=== PATIENT | female | born 1995 | race Caucasian/White ===

== ENCOUNTER 2018-08-29 09:40 | Inpatient (IN) | payer OTHER ==
[2018-08-29] MEDS ORDERED: OXYTOCIN/NORMAL SALINE 20 UNIT/1,000 ML RTUINJ IV PRN (10:38)
[2018-08-29] MEDS ORDERED: OXYTOCIN/NORMAL SALINE 20 UNIT/1,000 ML RTUINJ ONE (11:42)
[2018-08-29 11:48] LABS: APPEARANCE,URINE SLIGHTLY-CLOUDY; BILIRUBIN,URINE NEGATIVE (NEGATIVE); COLOR,URINE YELLOW; GLUCOSE, URINE NEGATIVE (NEGATIVE); KETONES,URINE NEGATIVE (NEGATIVE); LEUKOCYTE ESTERASE,URINE NEGATIVE (NEGATIVE); NITRITE,URINE NEGATIVE (NEGATIVE); PROTEIN,URINE NEGATIVE (NEGATIVE); URINE SPECIFIC GRAVITY 1.013; UROBILINOGEN,URINE NEGATIVE mg/dL (<2.0)
[2018-08-29 12:01] LABS: ABSOLUTE LYMPHOCYTES (AUTO) 1.3 10^3/uL (0.5-4.7); ABSOLUTE MONOCYTES (AUTO) 0.9 10^3/uL (0.1-1.4); ABSOLUTE NEUT (AUTO) 5.8 10^3/uL (1.7-8.2); BASOPHILS % (AUTO) 0.3 % (0-2); EOSINOPHILS % (AUTO) 0.5 % (0-6); HEMATOCRIT 28.9 % (36.0-47.0); HEMOGLOBIN 10.2 g/dL (12.0-15.5); MEAN CORPUSCULAR HEMOGLOBIN 30.5 pg (27.0-33.4); MEAN CORPUSCULAR HGB CONC 35.3 g/dL (32.0-36.0); MEAN CORPUSCULAR VOLUME 86 fl (80-97); MONOCYTES % (AUTO) 10.8 % (3-13); PLATELET COUNT 220 10^3/uL (150-450); RED BLOOD COUNT 3.36 10^6/uL (3.72-5.28); RED CELL DISTRIBUTION WIDTH 12.6 % (11.5-14.0); SEGMENTED NEUTROPHILS % (AUTO) 72.4 % (42-78); TOTAL CELLS COUNTED % (AUTO) 100 %
[2018-08-29 12:07] LABS: URINE AMPHETAMINES SCREEN NEGATIVE; URINE BARBITURATES SCREEN NEGATIVE; URINE BENZODIAZEPINES SCREEN NEGATIVE; URINE COCAINE SCREEN NEGATIVE; URINE MARIJUANA (THC) SCREEN NEGATIVE; URINE METHADONE SCREEN NEGATIVE; URINE PHENCYCLIDINE SCREEN NEGATIVE
--- NOTE | 2018-08-29 14:08 | Admission Physical ---
Datetime Report Generated by CPN: 08/29/2018 14:07 CURRENT ADMISSION Hx Assessment: The History has been Reviewed and is Current Chief Complaint: Suspected Ruptured Membranes Indication for Induction: PROM Admit Impression : Term, Intrauterine ; Ruptured Membranes Admit Plan: Admit to Unit; Initiate Labor Augmentation Protocol ALLERGIES Medication Allergies: Yes Medication Allergies: Sulfa (Sulfonamide Antibiotics) (08/29/2018) Latex: No Latex Allergies OBSTETRICAL HISTORY EDC: 09/10/2018 00:00 : 1 Para: 0 Term: 0 : 0 SAB: 0 IAB: 0 Ectopic: 0 Livin Cesareans: 0 VBACs: 0 Multiple Births: 0 Gestational Diabetes: No Rh Sensitization: No Incompetent Cervix: No TRELL: No Infertility: No ART Treatment: No Uterine Anomaly: No IUGR: No Hx Previous C/S: No Macrosomia: No Hx Loss/Stillborn: No PIH: No Hx : No Placenta Previa/Abruption: No Depression/PP Depression: Yes PTL/PROM: No Post Hemorrhage: No Current Procedures: Ultrasound Obstetrical History Comments: G-1 current denies complications SEE RECORDS Alcohol: No Marijuana : No Cocaine: No Other Illicit Drugs: No Cigarettes: Former Smoker. [id number] Cigarette Frequency: > 10 per day Cigarette Comments: stopped inOctober 2017 MEDICAL HISTORY Diabetes: No Blood Transfusion: No Pulmonary Disease (Asthma, TB): No Breast Disease: No Hypertension: No Admin Assistant Surgery: No Heart Disease: No Hosp/Surgery: No Autoimmune Disorder: No Anesthetic Complications: No Kidney Disease: No Abnormal Pap Smear: No Neuro/Epilepsy: No Psychiatric Disorders: Yes Other Medical Diseases: No Hepatitis/Liver Disease: No Significant Family History: No Varicosities/Phlebitis: No Trauma/Violence : No Thyroid Dysfunction: No Medical History Comments: depression/anxiety on zoloft INFECTIOUS HISTORY Gonorrhea: No Genital Herpes: No Chlamydia: No Tuberculosis: No Syphilis: No Hepatitis: No HIV/AIDS Exposure: No Rash or Viral Illness: No HPV: No PHYSICAL EXAM General: Normal Neurologic: Normal Heart: Normal Lungs: Normal Abdomen: Normal Extremities: Normal Pelvic Type: Adequate Vital Signs: Reviewed; Within Normal Limits MEMBRANES Membranes: Ruptured Amniotic Fluid Color: Clear FETUS A EGA: 38.2 Monitoring: External US FHR Category: Category I Presentation: Vertex Admit Comment: 23yo G1 @ 38w2d into L_D with SROM-clear fluid @ 0845. Pt is Opos, Rubella non-immune, GBS neg. significant hx of late entry to care @ 20w and +AFP for open spina bifida but negative u/s and released by MFM after detailed sono. Admit to L_D and augment with pit per Dr. Pike who is the OB supervisor publications production today. PLANS FOR LABOR AND DELIVERY Labor and Delivery: None Pain Management: Natural Feeding Preference: Breast Circumcision: Yes INFORMED CONSENT Assignment: Don Pike MD Signature: with User ID: [email or web address] : with User ID: [email or web address]
[2018-08-30] MEDS ORDERED: FENTANYL/BUPIVACAINE/NS/PF 300 MCG/150 ML RTUINJ EPI ONE ×2 (00:13→15:39)
[2018-08-30] MEDS ORDERED: BUPIVACAINE HCL 0.25 % INJ/PF (2.5 MG/1 ML) 30 ML VIAL ONE (00:13)
[2018-08-30] MEDS ORDERED: EPHEDRINE SULFATE INJ 50 MG/1 ML AMPULE ONE (00:13)
[2018-08-30] MEDS: RINGERS SOLUTION,LACTATED 1,000 ML IV PRN ×3 (00:16→15:34)
[2018-08-30] MEDS ORDERED: OXYTOCIN/NORMAL SALINE 20 UNIT/1,000 ML RTUINJ ONE (00:20)
[2018-08-30] MEDS ORDERED: MISOPROSTOL 0.2 MG TABLET ONE (00:20)
[2018-08-30] MEDS ORDERED: LIDOCAINE 1% INJ-PF (10 MG/ML) 30 ML SDV ONE (00:20)
[2018-08-30] MEDS ORDERED: PENICILLIN G-K 5 MILLION UNIT VIAL IV ONE (09:02)
[2018-08-30] MEDS ORDERED: PENICILLIN G-K 5 MILLION UNIT VIAL ONE ×3 (09:07→18:01)
[2018-08-30] MEDS: PENICILLIN G-K 5 MILLION UNIT VIAL IV SCH ×2 (12:59→19:25)
[2018-08-30] MEDS ORDERED: CITRIC ACID/SODIUM CITRATE ORAL SOLN 15 ML UDCUP ONE (16:25)
[2018-08-30] MEDS ORDERED: CEFAZOLIN 2 GM/D5W RTU 0 GM/0 ML RTUPB IV ONE (16:26)
[2018-08-30] MEDS ORDERED: BENZOCAINE/MENTHOL AEROSOL SPRAY 56 ML TOP PRN (18:20)
[2018-08-30] MEDS ORDERED: DIBUCAINE 1% OINTMENT 56 GM TP PRN (18:20)
[2018-08-30] MEDS ORDERED: ACETAMINOPHEN WITH CODEINE #3 TABLET PO PRN ×2 (18:20)
[2018-08-30] MEDS ORDERED: OXYTOCIN/NORMAL SALINE 20 UNIT/1,000 ML RTUINJ IV PRN (18:20)
[2018-08-30] MEDS ORDERED: ZOLPIDEM TARTRATE 5 MG TABLET PO PRN (18:20)
[2018-08-30] MEDS ORDERED: DIPH/PERTUSS(ACELL)/TETANUS VAC/PF 0.5 ML SYR (>=10YO) IM PRN (18:20)
--- NOTE | 2018-08-30 20:11 | Delivery Summary ---
Del Sum A-C Datetime Report Generated by CPN: 08/30/2018 20:11 DELIVERY PERSONNEL DELIVERY PERSONNEL: [id number] Delivery Doctor:: Siomara Fernandez MD Labor and Delivery Nurse:: Sidra Wade RN Labor and Delivery Nurse:: Shannon Tariq RN Nursery Nurse:: BRIANNE Tipton Student Observers:: Crystal Ram/TUNNEL ELASTIC OPERATOR CHAINSTITCH: ST O[facility] Additional Personnel: : BRIANNE Pittman MATERNAL INFORMATION Delivery Anesthesia: Epidural Medications After Delivery: Pitocin Bolus-Please Comment Meds After Delivery Comment: Pitocin 20 units in 1000ml NSS Estimated Blood Loss (ml): 50 Maternal Complications: Premature Rupture of Membranes Provider Comments: VAVD of a viable male at 1747 with OA with nuchal cord x 1 and left compound hand presentation; APGARS 7, 8; midline episiotomy LABOR SUMMARY EDC: 09/10/2018 00:00 No. Babies in Womb: 1 Attempted: No Labor Anesthesia: Epidural LABOR INFORMATION Reason for Induction: Premature Rupture of Membranes Onset of Labor: 08/30/2018 04:46 Complete Dilatation: 08/30/2018 16:54 Oxytocin: Augmentation Group B Beta Strep: Negative Antibiotics # of Doses: 2 Antibiotics Time of Last Dose: 1258 Name of Antibiotic Given: Penicillin Steroids Given: None Reason Steroids Not Administered: Not Applicable MEMBRANES Membranes Rupture Method: Spontaneous Rupture of Membranes: 08/29/2018 08:45 Length of Rupture (hr): 33.03 Amniotic Fluid Color: Clear Amniotic Fluid Amount: Moderate Amniotic Fluid Odor: Normal STAGES OF LABOR Stage 1 hr: 12 Stage 1 min: 8 Stage 2 hr: 0 Stage 2 min: 53 Stage 3 hr: 0 Stage 3 min: 5 Total Time in Labor hr: 13 Total Time in Labor min: 6 VAGINAL DELIVERY Episiotomy: Median Laceration #1: Vaginal Laceration Extension #1: Second Degree Laceration Repair: Yes Laceration Repair Note: Episiotomy/Laceration repaired with 3-0 Vicryl Sponge Count Correct: N/A Sharps Count Correct: Yes CSECTION DELIVERY Primary Indication: N/A Secondary Indication: N/A CSection Incidence: N/A Labor: N/A Elective: N/A CSection Incision: N/A BABY A INFORMATION Delivery Date/Time: 08/30/2018 17:47 Method of Delivery: Vaginal Born in Route : No : N/A Forceps: N/A Vacuum Extraction: Successful Shoulder Dystocia : No ASSISTED DELIVERY BABY A Indication for Assisted Delivery: bradycardia, maternal exhaustion Catheter Prior to Procedure: No Station Vacuum/Forcep Apply: +3 Position Vacuum/Forcep Apply: direct OA Vacuum Number of Pulls: 2 Vacuum Number of PopOffs: 0 Vacuum Maximum Pressure Obtained: 500 Reduce Pressure btwn Ctx: No Vacuum Software Development Leader: [place] Total Time Vacuum Applied: 80 sec PRESENTATION/POSITION BABY A Presentation: Cephalic Cephalic Presentation: Vertex Vertex Position: direct OA Breech Presentation: N/A PLACENTA INFORMATION BABY A Placenta Delivery Time : 08/30/2018 17:52 Placenta Method of Delivery: Spontaneous Placenta Status: Delivered SCORES BABY A Heart Rate 1 min: >100 bpm Resp Effort 1 min: Slow, Irregular Reflex Irritability 1 min: Cough or Sneeze or Pulls Away Muscle Tone 1 min: Active Motion Color 1 min: Blue/Pale Resuscitation Effort 1 min: Tactile Stimulation SCORE 1 MIN: 7 Heart Rate 5 min: >100 bpm Resp Effort 5 min: Slow, Irregular Reflex Irritability 5 min: Cough or Sneeze or Pulls Away Muscle Tone 5 min: Active Motion Color 5 min: Body [place], Extremities Blue SCORE 5 MIN: 8 Resuscitation Effort 10 min: N/A INFORMATION BABY A Gestational Age at Delivery: 38.3 Gestational Status: Early Term- 37- 38.6 Weeks Outcome : Liveborn Infant Condition : Stable Infant Sex: Male IDENTIFICATION BABY A Infant Verification Date/Time: 08/30/2018 17:59 ID Band Number: [id number] Mother's Name Verified: Yes RN Verifying Infant: Karis Merrill RNC Additional Verifying Personnel: Shannon Tariq Rn WEIGHT/LENGTH BABY A Birthweight (gm): 2825 Infant Weight (lb): 6 Infant Weight (oz): 4 Infant Length (in): 19.75 Infant Length (cm): 50.17 CORD INFORMATION BABY A No. Cord Vessels: 3 Nuchal Cord : Around Neck x1, Loose Nuchal Cord- Other: compound left hand Cord Blood Taken: Yes-For Eval (Mom's Blood Type - or O+) Infant Suction: None ASSESSMENT BABY A Complications: Extended Bradycardia; Other Infant Complications- Other: nuchal cord Physical Findings at Delivery: Caput Succedaneum; Molding of the Head; Bruising Respirations: Nasal Flaring Skin to Skin: Yes Skin to Skin Time (min): 10 Coat Padder/ALS Called : No Care By: Harpal Otoniel RNC Transferred To: Remains with Mother BABY B INFORMATION : N/A SIGNATURES Signature: with User ID: [email or web address]
[2018-08-30] MEDS: IBUPROFEN 800 MG TABLET PO SCH (22:25)
[2018-08-31] MEDS: IBUPROFEN 800 MG TABLET PO SCH ×3 (05:11→21:04)
[2018-08-31 07:11] LABS: HEMATOCRIT 30.5 % (36.0-47.0); HEMOGLOBIN 10.5 g/dL (12.0-15.5); MEAN CORPUSCULAR HEMOGLOBIN 29.7 pg (27.0-33.4); MEAN CORPUSCULAR HGB CONC 34.5 g/dL (32.0-36.0); MEAN CORPUSCULAR VOLUME 86 fl (80-97); PLATELET COUNT 209 10^3/uL (150-450); RED BLOOD COUNT 3.54 10^6/uL (3.72-5.28); RED CELL DISTRIBUTION WIDTH 12.9 % (11.5-14.0); WHITE BLOOD COUNT 12.4 10^3/uL (4.0-10.5)
[2018-08-31] MEDS ORDERED: IRON SUCROSE COMPLEX INJ/PF 100 MG/5 ML SDV IV ONE (09:00)
[2018-08-31] MEDS: DOCUSATE SODIUM 100 MG CAPSULE PO SCH ×2 (09:16→17:36)
[2018-08-31] MEDS: FERROUS SULFATE 325 MG TABLET PO SCH ×2 (09:16→17:36)
[2018-08-31] MEDS: SENNOSIDES/DOCUSATE 8.6-50 MG 1 EACH TABLET PO SCH (09:16)
[2018-08-31] MEDS: PRENATAL VITAMIN W DHA CAPSULE PO SCH (09:16)
--- NOTE | 2018-08-31 09:42 | PDOC PROGRESS REPORT ---
Subjective Progress Note for:: 08/31/18 Subjective:: pt states she feels great Reason For Visit: Physical Exam - Physical Exam Vital Signs: Temp Pulse Resp BP Pulse Ox 97.8 F 51 L 15 110/67 99 08/31/18 08:27 08/31/18 08:27 08/31/18 08:27 08/31/18 08:27 08/31/18 08:27 Intake & Output 08/30/18 08/31/18 09/01/18 06:59 06:59 06:59 Intake Total 1316 984 Balance 1316 984 Weight 65 kg General appearance: PRESENT: no acute distress Respiratory exam: PRESENT: clear to auscultation kerline Cardiovascular exam: PRESENT: RRR GI/Abdominal exam: PRESENT: normal bowel sounds, soft - Obstetrical Exam Fundal Height: u/u - u/2 Tender: No Result Laboratory Results: 08/31/18 06:50 08/31/18 06:50 WBC 12.4 H RBC 3.54 L Hgb 10.5 L Hct 30.5 L MCV 86 MCH 29.7 MCHC 34.5 RDW 12.9 Plt Count 209 Assessment & Plan - Diagnosis (1) Episiotomy pain Is this a current diagnosis for this admission?: Yes (2) Normal vaginal delivery Is this a current diagnosis for this admission?: Yes - Plan Summary Plan Summary: routine post care
[2018-09-01] MEDS: IBUPROFEN 800 MG TABLET PO SCH ×2 (05:49→15:32)
[2018-09-01 09:02] VITALS: BP 133/82
[2018-09-01] MEDS: SENNOSIDES/DOCUSATE 8.6-50 MG 1 EACH TABLET PO SCH (09:31)
[2018-09-01] MEDS: FERROUS SULFATE 325 MG TABLET PO SCH ×2 (09:31→18:28)
[2018-09-01] MEDS: PRENATAL VITAMIN W DHA CAPSULE PO SCH (09:31)
[2018-09-01] MEDS: DOCUSATE SODIUM 100 MG CAPSULE PO SCH ×2 (09:31→18:28)
--- NOTE | 2018-09-01 10:15 | PDOC DISCHARGE SUMMARY ---
Final Diagnosis Discharge Date: 09/01/18 - Final Diagnosis (1) Episiotomy pain Is this a current diagnosis for this admission?: Yes (2) Normal vaginal delivery Is this a current diagnosis for this admission?: Yes Discharge Data - Discharge Medication Prescriptions: Ibuprofen [Motrin 800 mg Tablet] 800 mg PO Q8HP PRN #60 tablet PRN Reason: Vit No.130/Iron/Folic [ Tablet] 1 tab PO DAILY #90 tablet Home Medications: Sertraline HCl [Zoloft 50 mg Tablet] 1 tab PO DAILY 08/29/18 Ibuprofen [Motrin 800 mg Tablet] 800 mg PO Q8HP PRN #60 tablet 09/01/18 Vit No.130/Iron/Folic [ Tablet] 1 tab PO DAILY #90 tablet 09/01/18 Procedures: NST Intrapartum Procedure(s): Spontaneous Vaginal Delivery Complication(s): Episiotomy Laceration-Degree: 2nd - Diagnosis Test Laboratory: Temp Pulse Resp BP Pulse Ox 97.9 F 73 14 133/82 H 100 09/01/18 08:17 09/01/18 08:17 09/01/18 08:17 09/01/18 08:17 09/01/18 08:17 08/29/18 08/29/18 08/31/18 09:50 11:27 06:50 RBC 3.36 L 3.54 L Hgb 10.2 L 10.5 L Hct 28.9 L 30.5 L Urine Opiates Screen NEGATIVE - Discharge information/Instructions Discharge Activity: Balance Activity w/Rest, Pelvic Rest Discharge Diet: Regular Disposition: HOME, SELF-CARE Follow up with: [facility] in: 4, Weeks
== END 2018-09-01 18:39 | disposition home or self-care (01) | DRG 807 ==
LOC: LC 09:40 → LR 10:04 → 2S 08-30 20:34
PROVIDERS: ADMIT Obstetrics & Gynecology Gynecology; ATTEND Obstetrics & Gynecology
PROC: 4A1HXCZ Monitoring of Products of Conception, Cardiac Rate, External Approach (ICD-10-PCS; 2018-08-29)
PROC: 10D07Z6 Extraction of Products of Conception, Vacuum, Via Natural or Artificial Opening (ICD-10-PCS; principal; 2018-08-30)
PROC: 0KQM0ZZ Repair Perineum Muscle, Open Approach (ICD-10-PCS; 2018-08-30)
PROC: 0W8NXZZ Division of Female Perineum, External Approach (ICD-10-PCS; 2018-08-30)
DX: O76 Abnormality in fetal heart rate and rhythm complicating labor and delivery (principal); Z37.0 Single live birth; O75.81 Maternal exhaustion complicating labor and delivery; O70.1 Second degree perineal laceration during delivery; O32.6XX0 Maternal care for compound presentation, not applicable or unspecified; O42.92 Full-term premature rupture of membranes, unspecified as to length of time between rupture and onset of labor; O69.81X0 Labor and delivery complicated by cord around neck, without compression, not applicable or unspecified; O99.344 Other mental disorders complicating childbirth; F32.9 Major depressive disorder, single episode, unspecified; F41.9 Anxiety disorder, unspecified; Z3A.38 38 weeks gestation of pregnancy; O99.334 Smoking (tobacco) complicating childbirth; F17.210 Nicotine dependence, cigarettes, uncomplicated; Z79.899 Other long term (current) drug therapy
CPT/HCPCS: 36415; 80307; 81005; 85025; 85027; 86592; 86850; 86900; 86901; 88307; J0690; J1756; J2540; J2590; J3010; J3490